=== PATIENT | female | born 1995 | race Hispanic/Latino ===

== ENCOUNTER 2020-08-16 08:18 | Outpatient (CLI) | payer OTHER ==
[2020-08-16 19:16] LABS: SARS-CoV-2 PCR by NAA Not Detected (NotDetected)
== END 2020-08-16 08:19 | disposition home or self-care (01) ==
LOC: CSHLAB 08:18
PROVIDERS: ATTEND Family Medicine
DX: Z20.822 Contact with and (suspected) exposure to COVID-19 (principal)
CPT/HCPCS: 87635; U0003; U0005

== ENCOUNTER 2020-08-17 21:54 | Inpatient (IN) | payer OTHER ==
[2020-08-17 22:52] VITALS: BMI 33.7
[2020-08-17] MEDS ORDERED: hydrALAZINE 20 MG/ML VIAL SLOW IVP PRN (22:55)
[2020-08-18] MEDS ORDERED: Butorphanol Tartrate 1 MG/ML VIAL SLOW IVP PRN (00:08)
[2020-08-18] MEDS ORDERED: Butorphanol Tartrate 1 MG/ML VIAL ONE (00:19)
[2020-08-18] MEDS: Lactated Ringer's 1,000 ML IV SCH ×3 (00:43→18:16)
[2020-08-18] MEDS ORDERED: Promethazine HCl 25 MG/ML VIAL IM SCH (01:15)
[2020-08-18] MEDS: Butorphanol Tartrate 1 MG/ML VIAL SLOW IVP PRN ×2 (01:50→03:38)
[2020-08-18] MEDS ORDERED: Ondansetron PF 4 MG/2 ML Vial IVP PRN ×4 (06:51→23:50)
[2020-08-18] MEDS ORDERED: hydrALAZINE 20 MG/ML VIAL SLOW IVP PRN ×2 (06:51→23:50)
[2020-08-18] MEDS ORDERED: Promethazine HCl 25 MG/ML VIAL IM PRN ×4 (06:51→23:50)
[2020-08-18] MEDS ORDERED: Fentanyl 4 mcg/Bup 0.1% Cadd 100 ML ONE ×2 (07:36→15:30)
[2020-08-18] MEDS ORDERED: Lidocaine 1% (PF) 30 ML VIAL SC PRN (07:37)
[2020-08-18] MEDS ORDERED: Ibuprofen 800 MG TAB PO PRN (07:37)
[2020-08-18] MEDS ORDERED: NS w/ Oxytocin 30 units 1,000 ML IV PRN (07:53)
[2020-08-18 08:09] LABS: Hemoglobin 13.6 g/dL (12.0-15.5); Mean Corpuscular HGB CONC 33.2 g/dL (32.0-36.0); Mean Corpuscular Hemoglobin 31.9 pg (27.0-33.0); Mean Platelet Volume 10.8 fl (7.4-10.4); Platelet Count 197 10x3/uL (150-450); RBC Distribution Width 13.2 % (11.5-14.5); Red Blood Cell (RBC) Count 4.27 10x6/uL (3.90-5.03); White Blood Cell (WBC) Count 14.6 10x3/uL (3.5-10.5)
[2020-08-18 08:43] LABS: Hep B Surf Ag Non-Reactive S/CO (NonReactive)
[2020-08-18 08:45] LABS: Syphilis Antibody Nonreactive (Nonreactive); Syphilis Antibody Index 0.04 S/CO (<1.00 Non-Reactive)
[2020-08-18] MEDS: Fentanyl 4 mcg/Bupivacaine 0.1% Cassette 100 ML EPIDURAL SCH ×2 (08:45→15:31)
[2020-08-18 08:49] LABS: HBSAg Index 0.22 S/CO (0-0.99)
[2020-08-18] MEDS ORDERED: Communication Order-Pharmacy FS SCH ×2 (12:15→21:15)
[2020-08-18] MEDS ORDERED: Lactated Ringer's 500 ML IV PRN (12:15)
[2020-08-18] MEDS ORDERED: ePHEDrine 50 MG/ML VIAL SLOW IVP PRN (12:15)
[2020-08-18] MEDS ORDERED: Eucerin (Mineral Oil/Petrolatum,White) 30 gm Jar TOP PRN ×2 (12:15→21:05)
[2020-08-18] MEDS ORDERED: Acetaminophen 325 MG TAB PO PRN (12:15)
[2020-08-18] MEDS ORDERED: diphenhydrAMINE 50 MG/ML VIAL IVP PRN ×2 (12:15→21:05)
[2020-08-18] MEDS ORDERED: Naloxone HCl 0.4 mg/ml Vial IVP PRN ×4 (12:15→21:05)
[2020-08-18] MEDS ORDERED: Ampicillin 2 GM in Sodium Chloride 0.9% 100 ML IVPB SCH (17:55)
[2020-08-18] MEDS ORDERED: Ampicillin 2 GM VIAL ONE (18:00)
[2020-08-18] MEDS ORDERED: Gentamicin 80 MG/2 ML VIAL ONE ×2 (18:03→18:04)
[2020-08-18] MEDS ORDERED: Azithromycin 500 MG VIAL ONE (20:31)
[2020-08-18] MEDS ORDERED: Ondansetron PF 4 MG/2 ML Vial ONE (20:51)
[2020-08-18] MEDS ORDERED: Oxytocin 10 UNITS/ML VIAL ONE (20:51)
[2020-08-18] MEDS ORDERED: Dexamethasone 4 mg/ml Vial ONE (20:51)
[2020-08-18] MEDS ORDERED: diphenhydrAMINE 50 MG/ML VIAL ONE (20:57)
[2020-08-18] MEDS ORDERED: Meperidine HCl/PF 25 MG/ML VIAL SLOW IVP PRN (21:05)
[2020-08-18] MEDS ORDERED: Ondansetron HCl/PF 4 MG/2 ML Vial IVP PRN (21:05)
[2020-08-18] MEDS ORDERED: Naloxone HCl 0.4 mg/ml Vial IV PRN (21:05)
[2020-08-18] MEDS ORDERED: L&D-Morphine 4 MG/ML VIAL SLOW IVP PRN (21:05)
[2020-08-18] MEDS ORDERED: Promethazine HCl 25 MG SUPP PR PRN (21:05)
[2020-08-18] MEDS ORDERED: HYDROmorphone 2 MG/ML VIAL SLOW IVP PRN (21:05)
[2020-08-18] MEDS ORDERED: Ketorolac Tromethamine 30 MG/ML VIAL IVP PRN (21:05)
[2020-08-18] MEDS ORDERED: Ketorolac Tromethamine 30 MG/ML VIAL IVP SCH (21:15)
[2020-08-18] MEDS ORDERED: Morphine PF 10 MG/10 ML VIAL ONE (21:22)
[2020-08-18] MEDS ORDERED: Ketorolac Tromethamine 15 MG/ML VIAL ONE ×2 (21:23)
[2020-08-18] MEDS ORDERED: Fentanyl 100 MCG/2 ML VIAL ONE (21:32)
[2020-08-18] MEDS ORDERED: Lanolin Ointment 7 GM TUBE TOP PRN (23:50)
[2020-08-18] MEDS ORDERED: diphenhydrAMINE 25 MG CAP PO PRN (23:50)
[2020-08-18] MEDS ORDERED: Bisacodyl 10 MG SUPP PR PRN (23:50)
[2020-08-18] MEDS ORDERED: Simethicone Chewable 80 MG TAB PO PRN (23:50)
[2020-08-18] MEDS ORDERED: NS / Oxytocin 40 units/1000ml 1,000 ML IV SCH (23:50)
[2020-08-18] MEDS ORDERED: Acetaminophen 500 MG TAB PO PRN (23:58)
[2020-08-19] MEDS ORDERED: Docusate Calcium (SURFAK) 240 MG CAP PO SCH (00:15)
[2020-08-19] MEDS ORDERED: Ferrous Sulfate 325 MG TAB PO SCH (00:15)
[2020-08-19] MEDS: Lactated Ringer's 1,000 ML IV SCH (00:41)
[2020-08-19 05:46] LABS: Hemoglobin 9.7 g/dL (12.0-15.5); Mean Corpuscular HGB CONC 33.7 g/dL (32.0-36.0); Mean Corpuscular Hemoglobin 32.3 pg (27.0-33.0); Mean Platelet Volume 10.9 fl (7.4-10.4); Platelet Count 160 10x3/uL (150-450); RBC Distribution Width 13.2 % (11.5-14.5); White Blood Cell (WBC) Count 19.4 10x3/uL (3.5-10.5)
[2020-08-19] MEDS: Ketorolac Tromethamine 30 MG/ML VIAL IVP SCH ×3 (06:01→17:47)
[2020-08-19] MEDS ORDERED: Adacel (T-DAP) 0.5 ML SYRINGE IM ONE (09:00)
[2020-08-19] MEDS ORDERED: HYDROcodone/Acetaminophen 5/325 mg Tablet PO PRN (09:16)
[2020-08-19] MEDS ORDERED: Meperidine HCl/PF 25 MG/ML VIAL IM PRN (09:16)
[2020-08-19] MEDS: Ferrous Sulfate 325 MG TAB PO SCH ×2 (12:19→21:57)
[2020-08-19] MEDS: Docusate Calcium (SURFAK) 240 MG CAP PO SCH ×2 (12:19→21:57)
[2020-08-19] MEDS: Prenatal Vitamin 1 TAB PO SCH (12:19)
[2020-08-19] MEDS: Ibuprofen 800 MG TAB PO SCH (22:00)
[2020-08-20] MEDS: Ibuprofen 800 MG TAB PO SCH ×3 (05:18→20:42)
[2020-08-20] MEDS: Prenatal Vitamin 1 TAB PO SCH (08:15)
[2020-08-20] MEDS: Ferrous Sulfate 325 MG TAB PO SCH ×2 (08:15→20:42)
[2020-08-20] MEDS: Docusate Calcium (SURFAK) 240 MG CAP PO SCH ×2 (08:15→20:42)
[2020-08-20] MEDS: HYDROcodone/Acetaminophen 5/325 mg Tablet PO PRN ×2 (16:26→20:42)
[2020-08-21] MEDS: HYDROcodone/Acetaminophen 5/325 mg Tablet PO PRN ×2 (00:17→05:09)
[2020-08-21] MEDS: Ibuprofen 800 MG TAB PO SCH (05:08)
[2020-08-21] MEDS ORDERED: NS w/ Oxytocin 30 units 500 ML IVPB SCH (06:45)
[2020-08-21 08:18] VITALS: BP 129/71; TEMP 98
[2020-08-21] MEDS: Docusate Calcium (SURFAK) 240 MG CAP PO SCH (08:18)
[2020-08-21] MEDS: Ferrous Sulfate 325 MG TAB PO SCH (08:18)
[2020-08-21] MEDS: Prenatal Vitamin 1 TAB PO SCH (08:19)
[2020-08-21] MEDS ORDERED: Measles/Mumps/Rubella 10 MCG/0.5 ML VIAL SC ONE (09:45)
== END 2020-08-21 10:39 | disposition home or self-care (01) | DRG 787 ==
LOC: CSHLD/OP 21:54 → CSHERS 21:54 → CSHLD 08-18 07:30 → CSHPP 08-19 00:46
PROVIDERS: ADMIT Family Medicine; ATTEND Family Medicine
PROC: 10D00Z1 Extraction of Products of Conception, Low, Open Approach (ICD-10-PCS; principal; 2020-08-18)
PROC: 4A0HXCZ Measurement of Products of Conception, Cardiac Rate, External Approach (ICD-10-PCS; 2020-08-18)
DX: O76 Abnormality in fetal heart rate and rhythm complicating labor and delivery (principal); O75.2 Pyrexia during labor, not elsewhere classified; O69.1XX0 Labor and delivery complicated by cord around neck, with compression, not applicable or unspecified; Z3A.39 39 weeks gestation of pregnancy; Z37.0 Single live birth
CPT/HCPCS: 36415; 51702; 85027; 86780; 86850; 86900; 86901; 87340; 88307; 90707; 99285; J0290; J0595; J1100; J1200; J1580; J1885; J2274; J2405; J2550; J3010